=== PATIENT | male | born 1955 | race Hispanic/Latino ===

== ENCOUNTER 2017-10-13 13:18 | Emergency (ER) | payer MEDICARE, MEDICAID ==
[2017-10-13 13:46] VITALS: BP 132/78; PULSE 79; RESP 18; TEMP 98.7; O2SAT 99
--- NOTE | 2017-10-13 14:09 | C.PDOC ---
History Of Present Illness <Soledad Jurado - Last Filed: 10/13/17 14:57> <Andreina Cummings - Last Filed: 10/13/17 15:04> 62 year old male with past medical history of COPD presents to the ER for left upper extremity pain. Patient states on Friday he was lifting a 100lb box to place on a shelf which fell onto his left shoulder. He states Friday he started to feel the pain in his left shoulder which felt like a burning pain radiating down to his left hand. He states he has taken ibuprofen, Naproxen and Tylenol with no relief. He states the pain states at a constant 9/10. Patient states he has had prior injuries to his left shoulder in the past for which he has had surgeries for. (Soledad Jurado) <Soledad Jurado - Last Filed: 10/13/17 14:57> <Andreina Cummings - Last Filed: 10/13/17 15:04> Chief Complaint (Nursing): Upper Extremity Problem/Injury Past Medical History - Medical History PMH: Asthma, COPD, HTN, Hypercholesterolemia Family History: States: Unknown Family Hx - Social History Hx Tobacco Use: Yes Hx Alcohol Use: No Hx Substance Use: No - Immunization History Hx Tetanus Toxoid Vaccination: No Hx Influenza Vaccination: No Hx Pneumococcal Vaccination: No <Soledad Jurado - Last Filed: 10/13/17 14:57> Vital Signs: Last Vital Signs Temp 98.7 F 10/13/17 13:43 Pulse 79 10/13/17 13:43 Resp 18 10/13/17 13:43 BP 132/78 10/13/17 13:43 Pulse Ox 99 10/13/17 15:01 - [facility] Procedures INSERT INDWELLING CATH (09/20/14) Review Of Systems Constitutional: Negative for: Fever, Chills Cardiovascular: Negative for: Chest Pain Respiratory: Negative for: Cough, Shortness of Breath Gastrointestinal: Negative for: Nausea, Vomiting Genitourinary: Negative for: Dysuria Musculoskeletal: Positive for: Shoulder Pain (left shoulder pain ) <Soledad Jurado - Last Filed: 10/13/17 14:57> Physical Exam - Physical Exam Appears: Well Head: Atraumatic, Normacephalic Eye(s): bilateral: Normal Inspection, PERRL, EOMI Cardiovascular: Rhythm Regular Respiratory: Wheezing (left upper lobe ) Gastrointestinal/Abdominal: Normal Exam Extremity: No Normal ROM (decreased left shoulder ROM), Tenderness (left shoulder tenderness ), No Swelling Neurological/Psych: Oriented x3 <Soledad Jurado - Last Filed: 10/13/17 14:57> ED Course And Treatment O2 Sat by Pulse Oximetry: 99 <Soledad Jurado - Last Filed: 10/13/17 14:57> Supervising Attending Note <Soledad Jurado - Last Filed: 10/13/17 14:57> - Supervising Attending Note Comment: REVIEWED W RESIDENT JURADO - Attestation: I have personally seen and examined this patient.: Yes I have fully participated in the care of the patient.: Yes I have reviewed all pertinent clinical information, including history, physical exam and plan: Yes <Andreina Cummings - Last Filed: 10/13/17 15:04> - Notes: Notes:: ACUTE INJURY L SHOULDER 4 DAYS CO EXAC CHRONIC L SHOULDER PAIN. PS BOX FELL ACCID ONTO TOP OF L SHOULDER, PAIN THE NEXT DAY. NEW ONSET DECR RANGE MOTION. NO RELIEF W OTC NSAIDS. DENIES CHRONIC PAIN MED USE. NO NEW WEAKNESS, PARETHESIS SINCE INJURY. EXAM ABOVE. (Andreina Cummings) Medical Decision Making <Soledad Jurado - Last Filed: 10/13/17 14:57> <Andreina Cummings - Last Filed: 10/13/17 15:04> Medical Decision Making: Left shoulder X-ray: Negative for fracture Patient denies the lidoderm patch and arm sling. Counselled patient to take Percocet as needed for pain every 6 hours. Counselled patient to follow up with PMD in 1 week. (Soledad Jurado) Disposition Discussed With : Andreina Cummings Doctor Will See Patient In The: ED - Disposition Disposition Time: 14:57 <Soledad Jurado - Last Filed: 10/13/17 14:57> Counseled Patient/Family Regarding: Studies Performed, Diagnosis, Need For Followup, Rx Given <Andreina Cummings - Last Filed: 10/13/17 15:04> - Disposition Referrals: Gianfranco Hsieh III, MD [Staff Provider] - Disposition: HOME/ ROUTINE Condition: IMPROVED Additional Instructions: Patient to follow up with primary care physician in 1 week. Prescriptions: oxyCODONE/Acetaminophen [Percocet 5/325 mg Tab] 1 tab PO Q6 #8 tab Instructions: Shoulder Pain (DC) Forms: Khush (Palauan) Print Language: KHMER - Clinical Impression Clinical Impression: Injury of left shoulder, Contusion - PA / [employer] / Resident Statement / has reviewed & agrees with the documentation as recorded. / has examined the patient and agrees with the treatment plan. <Soledad Jurado - Last Filed: 10/13/17 14:57>
--- NOTE | 2017-10-13 14:34 | RAD ---
Date of service: 10/13/2017 PROCEDURE: Radiographs of the Left Shoulder HISTORY: left shoulder pain COMPARISON: No prior. FINDINGS: BONES: Normal. No fracture. JOINTS: Normal. Glenohumeral and acromioclavicular joints preserved. No osteoarthritis. SOFT TISSUES: Normal. OTHER FINDINGS: None. IMPRESSION: Normal radiographs of the left shoulder.
[2017-10-13] MEDS: Oxycodone/Acetaminophen 5/325 mg Tab PO ONE (14:48)
[2017-10-13] MEDS ORDERED: Oxycodone/Acetaminophen 5/325 mg Tab ONE (14:49)
== END 2017-10-13 15:08 | disposition home or self-care (01) ==
LOC: C.ER 13:18
DX: S40.012A Contusion of left shoulder, initial encounter (principal); W22.8XXA Striking against or struck by other objects, initial encounter; Y92.9 Unspecified place or not applicable